=== PATIENT | male | born 1965 | race African-American/Black ===

== ENCOUNTER → 2018-06-27 | Outpatient (CLI) | payer BC ==
--- NOTE | 2018-06-27 13:37 | KCIC ---
EXAM: MRI RIGHT KNEE DATE: 06/27/2018 11:45 AM CLINICAL INDICATION: Anteromedial right knee pain COMPARISON: None. TECHNIQUE: Multiplanar multisequence MR imaging of the right knee was performed without IV contrast. FINDINGS: No right knee joint effusion. Trace right Bowles's cyst. No definite full-thickness cartilage defect is identified although there is mild thinning at the inferior aspect of the lateral trochlea and 25% thinning at the medial patellar facet. The ACL and PCL are intact. The MCL, fibular collateral ligament, IT band and biceps femoris are intact. The presence ring tendons are normal in signal and morphology without tenosynovitis. The popliteus tendon is also normal in signal and morphology. Neutral patellar tracking. Extensor mechanism is intact. Medial meniscus: No discrete medial meniscal tear is identified although the medial meniscus is in general mildly diminutive relative to the lateral meniscus Lateral meniscus: No discrete lateral meniscal tear is identified. Bone marrow signal: No evidence for fracture or AVN. IMPRESSION: 1. The medial meniscus is mildly diminutive, possibly postsurgical or physiologic for this patient. 2. Trace right Bowles's cyst. 3. Mild patellofemoral chondromalacia as above. Electronically signed by: Alexy Gonzalez MD (06/27/2018 1:33 PM) [id number]
== END | disposition home or self-care (01) ==
LOC: KCIC MRI 11:27
PROVIDERS: ATTEND General Practice
DX: M22.41 Chondromalacia patellae, right knee (principal)
CPT/HCPCS: 73721